=== PATIENT | female | born 2000 | race Caucasian/White ===

== ENCOUNTER 2020-08-13 05:07 | Inpatient (IN) ==
--- NOTE | 2020-07-20 12:52 | Anesthesiology Consultation ---
Date of Service July 20, 2020 Assessment & Plan (1) Encounter for pre-operative examination: COVID screening: Per assessment on 07/20: Travel screen negative, no known COVID- 19 positive contacts or current COVID-19 related symptoms. Surgeon arranging preop COVID testing. Awaiting results. 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 History Surgery Operation Date: 08/13/20 07:30 Proposed Procedures p Section in LD - Norma Garcia MD, FACOG Height/Weight Height: 5 ft 4 in Weight: 93.894 kg Allergies Allergy/AdvReac Type Severity Reaction Status Date / Time No Known Allergies Allergy Verified 07/20/20 12:19 Medications Home Medications Medication Instructions Recorded Confirmed Last Taken 1 tab PO DAILY 07/20/20 07/20/20 Unknown Past Medical History Medical History Anxiety Asthma no inh Juvenile arthritis Past Family History Family History Other No family history of adverse response to anesthesia Denies family history of Deep vein thrombosis Past Surgical History Surgical History History of surgery removal of ingrown toenail History of tonsillectomy and adenoidectomy History of tooth extraction Social History Smoking Status: Never smoker Do You Dip or Chew Tobacco: No Hx Alcohol Use: No Hx Substance Use: No substance use type: does not use Lab Results Anesthesia Preop Results Results Anesthesia Widget: Hgb 11.8 g/dL (12.0-16.0) L 05/26/20 Hct 34.1 % (37-47) L 05/26/20 Urine Color Yellow 05/26/20 Urine Appearance Clear (Clear) 05/26/20 Urine pH 7.5 (4.5-7.5) 05/26/20 Urine Specific Spencer 1.016 (1.000-1.030) 05/26/20 Urine Protein Negative (Negative) 05/26/20 Urine Glucose (UA) Negative (Negative) 05/26/20 Urine Ketones Negative (Negative) 05/26/20 Urine Blood Negative (Negative) 05/26/20 Urine Nitrite Negative (Negative) 05/26/20 Urine Bilirubin Negative (Negative) 05/26/20 Urine Urobilinogen Negative (Negative) 05/26/20 Urine Leukocyte Esterase 2+ (Negative) H 05/26/20 Urine WBC (Auto) 5-10 /hpf (0-5) H 05/26/20 Urine RBC (Auto) 0-4 /hpf (0-4) 05/26/20 Urine Hyaline Casts (Auto) 1-5 /lpf (0-5) 05/26/20 Urine Epithelial Cells (Auto) >30 /lpf (0-5) H 05/26/20 Urine Bacteria (Auto) 1+ (Negative) H 05/26/20
--- NOTE | 2020-08-12 13:29 | History & Physical Report ---
Date of Service August 12, 2020 Assessment & Plan Admission and Anticipated Discharge Date Admission Date: IUP at 39 weeks presents for elective primary LTCS because of overwhelming anxiety related to the normal labor & birthing process. The procedure and it's risks were reviewed in detail and all questions were answered to her satisfaction. History of Present Illness Primary Care Provider: Joanie Patino Patient is a 20 yo white female EDC 08/16/20 who presents at 39 weeks for elective LTCS because of overwhelming anxiety relating to labor & delivery. Despite counselling about pain relief during labor & delivery, and the risks with doing a LTCS she feels she can tolerate post-op pain and a C/S procedure much better than the pain of labor and delivery and the uncertainty that she will tolerate labor if pain management is inadequate. has otherwise been uncomplicated. GBS negative. Allergies Allergy/AdvReac Type Severity Reaction Status Date / Time No Known Allergies Allergy Verified 08/12/20 09:34 Home Medications Medication Instructions Recorded Confirmed Type 1 tab PO DAILY 07/20/20 08/12/20 History Patient History Medical History Anxiety Asthma no inh Juvenile arthritis Surgical History History of surgery removal of ingrown toenail History of tonsillectomy and adenoidectomy History of tooth extraction Family History Other No family history of adverse response to anesthesia Denies family history of Deep vein thrombosis Social History Smoking Status: Never smoker Second Hand Exposure: No; Hx Alcohol Use: No Hx Substance Use: No Preferred Language: Nepali Communication Ability: Effective Costume Specialist Required: No Beliefs That Will Affect Care: None marital status: Single marital status details: FOB: Aditya (23) [phone] Current Living Situation: Significant Other Current Living Situation Comment: lives with FOB , 2 dogs, 3 cats, mom changes litter current occupational status: employed current occupation: [employer]. Feels Safe at Home: Yes Assistive Devices: Contacts and Glasses Review of Systems All systems reviewed & are unremarkable except as noted in HPI & below Physical Exam Constitutional: WD/WN, vitals as above Respiratory: normal respiratory effort, lungs clear to auscultation Cardiovascular: RRR, no murmur, no edema Psychiatric: A+Ox3, euthymic affect Genitourinary: OB Exam Abdomen: + fundal height (38cm), + heart tones (135), + vertex and + estimated weight (6-7 pounds) Coding Level of Care Code None
[2020-08-13] MEDS ORDERED: LACTATED RINGER'S 1,000 ML IV SCH (06:00)
[2020-08-13] MEDS ORDERED: CITRIC ACID/SODIUM CITRATE 15 ML UDC PO SCH (06:00)
[2020-08-13] MEDS ORDERED: ceFAZolin 2,000 MG in SYRINGE 0 ML IV SCH (06:00)
[2020-08-13 06:04] LABS: Basophils # (auto) 0.02 K/uL (0-0.2); Basophils % (auto) 0.2 %; Eosinophils # (auto) 0.15 K/uL (0-0.5); Eosinophils % (auto) 1.5 %; Hematocrit (blood only) 32.2 % (37-47); Hemoglobin 10.7 g/dL (12.0-16.0); Immature Granulocytes # (auto) 0.04 K/uL (0.00-0.02); Immature Granulocytes % (auto) 0.4 %; Lymphocytes # (auto) 3.48 K/uL (1.2-3.4); Lymphocytes % (auto) 34.8 %; Mean Corpuscular Hemoglobin 29.3 pg (25-34); Mean Corpuscular Hgb Conc 33.2 g/dL (32-36); Mean Corpuscular Volume 88.2 fL (80-100); Mean Platelet Volume 11.7 fL (7.4-10.4); Monocytes # (auto) 0.76 K/uL (0.11-0.59); Monocytes % (auto) 7.6 %; Neutrophils # (auto) 5.56 K/uL (1.4-6.5); Neutrophils % (auto) 55.5 %; Platelet Count 164 K/uL (130-400); RDW Coefficient of Variation 13.5 % (11.5-14.5); RDW Standard Deviation 43.4 fL (36.4-46.3); Red Blood Count 3.65 M/uL (4.2-5.4); White Blood Count 10.01 K/uL (4.8-10.8)
[2020-08-13] MEDS ORDERED: PHENYLEPHRINE 100MCG/ML 5ML SYR ONE (06:22)
[2020-08-13] MEDS ORDERED: ONDANSETRON INJ 2 MG/ML 2 ML VIAL ONE (06:22)
[2020-08-13] MEDS ORDERED: OXYTOCIN 10 UNITS/ML VIAL ONE (06:22)
[2020-08-13] MEDS ORDERED: fentaNYL citrate 100 MCG/2 ML VIAL ONE (06:22)
[2020-08-13] MEDS ORDERED: MoRPHine SULFATE PF 1 MG/ML 10 ML AMP/VIAL ONE (06:22)
--- NOTE | 2020-08-13 06:32 | Anesthesiology Consultation ---
Date of Service August 13, 2020 Assessment & Plan (1) Encounter for pre-operative examination: Chart Review Chart Review: Acceptable Risk for Surgery and Patient NOT seen in Pre Admission Testing Consults Requested none History Surgery Operation Date: 08/13/20 07:30 Proposed Procedures p Section in LD - Norma Garcia MD, FACOG Height/Weight Height: 5 ft 4 in Weight: 96.162 kg Allergies Allergy/AdvReac Type Severity Reaction Status Date / Time Fish Containing Products Allergy Sneezing Verified 08/13/20 07:18 pollen extracts Allergy Rash Verified 08/13/20 07:18 Medications Home Medications Medication Instructions Recorded Confirmed Last Taken 1 tab PO DAILY 07/20/20 08/13/20 08/12/20 Active Medications Generic Name Dose Route Start Last Admin Trade Name Freq PRN Reason Stop Dose Admin Cefazolin Sodium 2,000 mg/ 15 mls @ 3.75 mls/min 08/13/20 06:00 08/13/20 07 :35 Syringe IV 08/13/20 14:00 3.75 mls/min PREOP NADIA Administration Past Medical History Medical History Anxiety no meds Asthma no inh Juvenile arthritis Exercise / Class Metabolic Activity II 4-5 Yardwork/Stairs/Walk up hill Past Family History Family History Other No family history of adverse response to anesthesia Denies family history of Deep vein thrombosis Past Surgical History Surgical History History of surgery removal of ingrown toenail History of tonsillectomy and adenoidectomy History of tooth extraction Past Anesthesia History No Hx of Anesthesia Complications and No Family Hx of Anesthesia Complications History of PONV No Hx of PONV and No Hx of Motion Sickness Social History Smoking Status: Never smoker Do You Dip or Chew Tobacco: No Hx Alcohol Use: No Hx Substance Use: No substance use type: does not use Physical Exam Vital Signs Last Vital Signs Temp 36.6 C 08/13/20 05:29 Pulse 85 08/13/20 05:26 Resp 20 08/13/20 05:29 BP 124/70 08/13/20 05:26 Testing Laboratory Results 08/13/20 05:51 Blood Type O Positive 08/13/20 05:51 Antibody Screen NEGATIVE 08/13/20 05:51
--- NOTE | 2020-08-13 07:34 | History & Physical Bridge Note ---
Date of Service August 13, 2020 History & Physical Bridge Note I have examined the patient, reviewed the History & Physical and in the interval since the performance of the History & Physical I have noted the following changes of clinical significance: no changes noted
[2020-08-13] MEDS ORDERED: MIDAZOLAM HCL 1 MG/ML 2ML VIAL ONE (08:18)
[2020-08-13] MEDS ORDERED: NALOXONE HCL 1 MG in SODIUM CHLORIDE 0.9% 1000ML 1,000 ML IV PRN (08:28)
[2020-08-13] MEDS ORDERED: NALOXONE HCL 0.4 MG/1 ML VIAL/CARP IV PRN (08:28)
[2020-08-13] MEDS ORDERED: ePHEDrine sulfate 50 MG/ML AMP IV PRN (08:28)
[2020-08-13] MEDS ORDERED: MoRPHine SULFATE PF 1 MG/ML 10 ML AMP/VIAL INT SPINAL ONE (08:28)
[2020-08-13] MEDS ORDERED: PROMETHAZINE HCL 12.5 MG in SODIUM CHLORIDE 0.9% 50 ML IV PRN (08:28)
[2020-08-13] MEDS ORDERED: LACTATED RINGER'S 500 ML IV PRN (08:28)
[2020-08-13] MEDS ORDERED: NALOXONE HCL 0.08 MG in SYRINGE 1.8 ML IV PRN (08:28)
[2020-08-13] MEDS ORDERED: MoRPHine SULFATE 2 MG/ML CARP IV PRN (08:28)
[2020-08-13] MEDS ORDERED: diphenhydrAMINE 50 MG/ML VIAL IV PRN (08:28)
[2020-08-13] MEDS ORDERED: ONDANSETRON INJ 2 MG/ML 2 ML VIAL IV PRN (08:28)
[2020-08-13] MEDS ORDERED: HYDROmorphone INJ 0.5 MG/0.5 ML SYR IV PRN (08:28)
[2020-08-13] MEDS ORDERED: SODIUM CHLORIDE 0.9% 1000ML 1,000 ML IV SCH (08:30)
[2020-08-13] MEDS ORDERED: DC INTRASPINAL MORPHINE SCH (08:30)
[2020-08-13] MEDS ORDERED: NO NARCOTICS OR SEDATIVES SCH ×2 (08:30)
--- NOTE | 2020-08-13 09:15 | Post Operative Brief Note ---
PG Immediate Post Op with CF Date of Surgery August 13, 2020 Pre & Post Diagnosis Operation Date: 08/13/20 07:30 <No data on this case meets the specified criteria> I identified the patient and participated in the time-out.: Yes Procedure Operation Date: 08/13/20 07:30 Actual Procedures p Section in LD LIVE MALE CHILD AT 0834 IN OR 3 - Norma Stokes MD, FACOG Surgeon Norma Garcia MD, FACOG Motor Rebuilder Joe Vega MD Estimated Blood Loss 800 Findings Consistent with Post-Op Diagnosis Specimens Specimen Description: 1. Placenta, HOLD 2. Cord Blood Drains [place] Catheter
--- NOTE | 2020-08-13 09:29 | Anesthesiology Progress Note ---
Date of Service August 13, 2020 Anesthesia Post Procedure Vital Signs Vital Signs: Temp Pulse Resp BP Pulse Ox 08/13/20 09:23 99 H 141/59 H 100 08/13/20 05:29 36.6 C 20 08/13/20 05:26 36.6 C 85 20 124/70 Transfer of Care Handoff Completed per policy Notes Mental Status: alert / awake / arousable and participated in evaluation Patient Amnestic to Procedure: Yes Nausea / Vomiting: adequately controlled Pain: adequately controlled Airway Patency, RR, SpO2: stable & adequate BP & HR: stable & adequate Hydration State: stable & adequate Neuraxial Anesthesia: was administered and sensory block is resolving Anesthetic Complications: no major complications apparent and Pt Satisfied with anesthetic care
[2020-08-13] MEDS ORDERED: DIPHTHERIA/TETANUS/PERTUSSIS 0.5 ML SYR/VIAL IM ONE (09:50)
[2020-08-13] MEDS ORDERED: SUPERCREAM 0.870% 15 GM JAR EXT PRN (09:50)
[2020-08-13] MEDS ORDERED: SENNA 8.6 MG TAB PO PRN (09:50)
[2020-08-13] MEDS ORDERED: MAGNESIUM HYDROXIDE SUSP 30 ML UDC PO PRN (09:50)
[2020-08-13] MEDS ORDERED: BENZOCAINE 20% AER SPR 82.5 GM CAN EXT PRN (09:50)
[2020-08-13] MEDS ORDERED: HYDROCORTISONE ACETATE 25 MG SUPP PR PRN (09:50)
--- NOTE | 2020-08-13 10:43 | Operative Report ---
PG Post Operative Report Pre & Post Diagnosis Operation Date: 08/13/20 07:30 Pre-Op Diagnosis: Elective c/s due to intractable anxiety. Post-Op Diagnosis: Elective c/s due to intractable anxiety. Delivery of viable male infant 6 lbs 9 ozs I identified the patient and participated in the time-out.: Yes Procedure Operation Date: 08/13/20 07:30 Actual Procedures p Section in LD LIVE MALE CHILD AT 0834 IN OR 3 - Norma Stokes MD, FACOG Surgeon Norma Garcia MD, FACOG Pulmonologist Intensivist Joe Vega MD Estimated Blood Loss 800 Findings Consistent with Post-Op Diagnosis uterus is gravid and consistent with a term . Bilateral ovaries and tubes were grossly normal. Specimens Placenta Drains leiva to straight drainage- clear urine at end of procedure Anesthesia Type Spinal Complications none Disposition Accompanied Patient To Recovery: Yes Disposition: L&D Indications The patient is a 20-year-old G1, P0 white female who presents at 39 weeks for primary elective section because of severe anxiety. She has generalized anxiety however she is most anxious about the labor and delivery process. After extensive counseling patient is still requesting a primary section because she feels she will not be able to tolerate the labor and vaginal delivery process. She understands the risk procedure and is willing to proceed. Description of Procedure After the patient received adequate spinal anesthetic she was prepped and draped in the usual sterile fashion. A low transverse skin incision was made with a scalpel and carried to the fascia with the same scalpel. The fascial incision was then extended transversely with Zimmer scissors and the edges grasped with Apurva clamps. The underlying rectus muscles were then bluntly sharply dissected off of the overlying fascia. The rectus muscles were divided along the midline and the underlying peritoneum elevated and entered sharply with the Metzenbaum scissors. The the bladder was then taken down off the anterior surface of the uterus with Metzenbaum scissors and placed behind the bladder blade. The lower uterine segment then entered with a scalpel and extended transversely. The infant was delivered from the vertex presentation with the assistance of moderate fundal pressure and vacuum as the infant kept trying to revert to a transverse lie position. After the head was delivered the rest of the infant delivered easily there was a loose nuchal cord which was reduced at the time of delivering the head. There was spontaneous crying and the was moving all 4 limbs. The infant was handed off to Dr. Coreas who was in attendance as educational consultant. The placenta was then manually removed and the uterus was exteriorized and covered with a clean lap sponge. The uterine cavities was then explored and found be free of any retained tissue or membranes. The uterine incision was then closed in 2 layers in a running locking imbricating fashion with 0 Monocryl. Hemostasis was noted to be excellent. The posterior cul-de-sac was irrigated with a small amount of normal saline solution. Several clots were removed from the anterior cul-de-sac. The cul-de-sac was also irrigated with normal saline. The uterus was then placed back into the abdominal cavity. Hemostasis continued to be excellent. After the gutters were explored and found to be free of any clot or fluid, the rectus muscles were closed on the midline with individual stitches of 0 Monocryl. The fascia was then closed in a running fashion with 0 Vicryl. After the adipose layer was irrigated with normal saline the skin edges were reapproximated using a subcuticular stitch of 4-0 Vicryl. The urine was clear at the end of the case, and the patient and tolerated the procedure well and were stable on upon arrival in labor and delivery. I attest to the content of the Intraoperative Record and any orders documented therein. Any exceptions are noted below.
[2020-08-13] MEDS: OXYTOCIN 20 UNITS in LACTATED RINGER'S 1,000 ML IV SCH ×2 (11:33→19:37)
[2020-08-13] MEDS: KETOROLAC 30 MG/ML VIAL IV PRN (16:05)
[2020-08-13] MEDS: SIMETHICONE 80 MG CHEW PO SCH ×3 (17:46→21:11)
[2020-08-13] MEDS: DOCUSATE SODIUM 100 MG CAP PO SCH (21:11)
[2020-08-14] MEDS ORDERED: LACTATED RINGER'S 1,000 ML IV SCH (01:16)
[2020-08-14] MEDS: KETOROLAC 30 MG/ML VIAL IV PRN (02:29)
[2020-08-14] MEDS ORDERED: PROMETHAZINE HCL 25 MG in SODIUM CHLORIDE 0.9% 50 ML IV PRN (02:30)
[2020-08-14] MEDS ORDERED: diphenhydrAMINE 50 MG/ML VIAL IV PRN (02:30)
[2020-08-14] MEDS ORDERED: ONDANSETRON INJ 2 MG/ML 2 ML VIAL IV PRN (02:30)
[2020-08-14] MEDS ORDERED: KETOROLAC 30 MG/ML VIAL IV PRN (02:30)
[2020-08-14] MEDS ORDERED: diphenhydrAMINE Capsule 25 MG CAP PO PRN (02:30)
[2020-08-14] MEDS ORDERED: MEPERIDINE HCL 50 MG/ML CARP IV PRN (02:30)
[2020-08-14 06:21] LABS: Hematocrit (blood only) 23.6 % (37-47)
--- NOTE | 2020-08-14 06:49 | Obstetrical Progress Note ---
Date of Service <Joe Vega MD - Last Filed: 08/14/20 07:56> August 14, 2020 Assessment & Plan <Joe Vega MD - Last Filed: 08/14/20 07:56> (1) state: 20 y/o 39w4d s/p elective pLTCS on 08/13, POD1. O pos. RI. - meeting POD1 milestones - ambulate. - Hb 10.7->8.0, asymptomatic and has ambulated w/o issues. BP 90/57 noted. will monitor clinically. CBC ordered for 08/15. defer starting iron at this time. will likely start iron supp x 6 weeks after dispo - continue - advance diet - continue routine care Subjective <Joe Vega MD - Last Filed: 08/14/20 07:56> Ambulation: ambulating normally Voiding: no voiding problems Passing Gas:: Yes Diet Tolerance:: clear liquids Lochia:: Small Feeding Type:: bottle feeding Current Pain Level(1-10): 6 Pain is tolerable, attributes severity to just waking up. Patient does not have any concerns and is doing well. Review of Systems Denies fever, chills, sweats Denies shortness of breath, chest pain, palpitations. Denies breast pain. Denies dysuria. Denies headache or changes in vision. Denies nausea/vomiting. Denies numbness, tingling, weakness. Denies calf pain. Denies mood complaints. Physical Exam <Joe Vega MD - Last Filed: 08/14/20 07:56> General: Alert, oriented. No acute distress. Cardiac: Regular rate and rhythm, no murmurs/rubs/gallops. Respiratory: Clear to auscultation bilaterally, no wheezes/rales/rhonchi. No respiratory distress. Abdomen: , soft. Uterus: Uterine fundus firm, palpable at lvl of umbilicus per attending exam. LTCS incision intact and nonerythematous per attending exam. Lower Extremities: No lower extremity edema or swelling. No deep calf pain. Ho man's negative bilaterally. Results & Data ([facility]) <Joe Vega MD - Last Filed: 08/14/20 07:56> Vital Signs (Past 12 Hours) Vital Signs Temp Pulse Resp BP Pulse Ox 08/14/20 03:15 37.0 C 86 16 90/57 L 08/14/20 02:25 16 96 08/14/20 01:50 18 97 08/14/20 00:50 18 97 08/13/20 23:30 37.1 C 80 16 98/82 L 99 08/13/20 22:20 16 100 08/13/20 21:10 16 99 08/13/20 20:20 16 98 08/13/20 19:45 36.9 C 72 16 102/65 98 08/13/20 19:20 16 96 Medications Administered <Norma Garcia MD, FACOG - Last Filed: 08/14/20 08:09> Co-Signing Physician Notes Resident Physician Supervision Note: I was present with Dr.Lawrence Vega during the history and exam. I discussed the c ase with the resident and agree with the findings and plan as documented in the note. Any exceptions or clarifications are listed here: [None] Documented By: Norma Garcia MD, FACOG
[2020-08-14] MEDS: SIMETHICONE 80 MG CHEW PO SCH ×4 (08:41→20:24)
[2020-08-14] MEDS: oxyCODONE/ACETAMINOPHEN 5mg/325mg TAB PO PRN ×2 (08:41→15:20)
[2020-08-14] MEDS: IBUPROFEN 600 MG TAB PO PRN ×3 (08:42→20:23)
[2020-08-14] MEDS: DOCUSATE SODIUM 100 MG CAP PO SCH ×2 (08:42→20:24)
[2020-08-14] MEDS: PRENATAL VITAMIN 1 TAB PO SCH (08:42)
[2020-08-14] MEDS ORDERED: bisacodyL 5 MG TABEC PO SCH (20:00)
[2020-08-15] MEDS: IBUPROFEN 600 MG TAB PO PRN (03:28)
[2020-08-15] MEDS: oxyCODONE/ACETAMINOPHEN 5mg/325mg TAB PO PRN (03:29)
[2020-08-15 06:09] LABS: Basophils # (auto) 0.02 K/uL (0-0.2); Basophils % (auto) 0.3 %; Eosinophils # (auto) 0.11 K/uL (0-0.5); Eosinophils % (auto) 1.5 %; Hematocrit (blood only) 23.8 % (37-47); Hemoglobin 7.7 g/dL (12.0-16.0); Immature Granulocytes # (auto) 0.03 K/uL (0.00-0.02); Immature Granulocytes % (auto) 0.4 %; Lymphocytes # (auto) 1.58 K/uL (1.2-3.4); Mean Corpuscular Hemoglobin 29.6 pg (25-34); Mean Corpuscular Hgb Conc 32.4 g/dL (32-36); Mean Corpuscular Volume 91.5 fL (80-100); Mean Platelet Volume 11.5 fL (7.4-10.4); Monocytes # (auto) 0.62 K/uL (0.11-0.59); Monocytes % (auto) 8.2 %; Neutrophils # (auto) 5.17 K/uL (1.4-6.5); Neutrophils % (auto) 68.6 %; Platelet Count 161 K/uL (130-400); RDW Coefficient of Variation 13.8 % (11.5-14.5); RDW Standard Deviation 46.2 fL (36.4-46.3); White Blood Count 7.53 K/uL (4.8-10.8)
[2020-08-15 06:32] LABS: Polychromasia 1+
[2020-08-15] MEDS: DOCUSATE SODIUM 100 MG CAP PO SCH (08:33)
[2020-08-15] MEDS: PRENATAL VITAMIN 1 TAB PO SCH (08:33)
[2020-08-15] MEDS: SIMETHICONE 80 MG CHEW PO SCH (08:33)
--- NOTE | 2020-08-15 08:57 | Obstetrical Progress Note ---
Date of Service August 15, 2020 Assessment & Plan (1) state: POD#2 doing well. DC home. Instructions reviewed. Followup 6w PP. Subjective Ambulation: ambulating normally Voiding: no voiding problems Passing Gas:: Yes Diet Tolerance:: regular diet Lochia:: Moderate Feeding Type:: breast feeding Review of Systems All systems reviewed & are unremarkable except as noted in HPI & below Physical Exam Incision CDI Constitutional WD/WN, vitals as above no acute distress Respiratory normal respiratory effort Cardiovascular Rate/Rhythm: regular rate and regular rhythm Gastrointestinal (Abdomen) Inspection/Auscultation: abdomen normal to inspection; abdomen not distended Percussion/Palpation: abdomen soft Genitourinary OB Exam Abdomen: + fundal height Fundus: + firm; not tender Results & Data ([facility]) Vital Signs (Past 12 Hours) Vital Signs Temp Pulse Resp BP Pulse Ox 08/14/20 23:45 36.7 C 87 18 117/84 99
[2020-08-15] MEDS ORDERED: bisacodyL 10 MG SUPP PR PRN (09:09)
--- NOTE | 2020-08-20 22:16 | Discharge Summary (DS) ---
PRINCIPAL DIAGNOSES: Intrauterine at 39 weeks, intractable anxiety. PRINCIPAL PROCEDURE: An elective section because of the intractable anxiety with delivery of a viable male , 6 pounds 9 ounces. HISTORY: The patient is a 20-year-old G1, P0 white female who presents at 39 weeks for primary section because of severe anxiety. Her anxiety is also focused on the labor and delivery process. After extensive counseling, the patient is still requesting repeat section. This was done without difficulty. She had an uncomplicated postop course. She was eating regular diet on her 1st postop day, ambulating well, and oral pain meds controlled her pain on her 1st postop day. Hemoglobin on admission was 10.7, hematocrit 32.2. First postop day hemoglobin 8.0, hematocrit 23.6. Second postop day hemoglobin 7.7, hematocrit of 23.8. She was sent home in good condition with prescriptions for Percocet 1 tablet p.o. q. 6 hours p.r.n. pain, Motrin 600 mg p.o. q. 6 hours p.r.n. pain, iron to be taken 1 daily for the next 6 weeks, as well as her vitamin. She is to call for temperature of 101 degrees or higher, heavy vaginal bleeding, burning with urination, increased redness, drainage or pain in her incision, calf tenderness, or any other concerns. She is to be seen in the office in 6 weeks.
== END 2020-08-15 10:55 | disposition home or self-care (01) | DRG 788 ==
LOC: 4S1 05:07 → EDSTATUS 07:30 → 4S2 14:36

== ENCOUNTER 2023-02-15 05:27 | Inpatient (IN) ==
--- NOTE | 2023-02-01 14:30 | Anesthesiology Consultation ---
Date of Service February 01, 2023 Assessment & Plan (1) Encounter for pre-operative examination: Chart Review Chart Review: entry level drafter initiated -Infectious Disease screening: Per PAT nursing assessment on 02/01/23. No known infectious disease contacts in past 10 days or current infectious disease symptoms. No recent travel outside the country. Primary 08/13/20 (elective due to anxiety) = Done under SAB at L3-4 with 1 attempt. Patient maintained duckwater airway History Surgery Operation Date: 02/15/23 07:30 Proposed Procedures p Section (Delivery of Baby Through Abdominal Incision) - Geeta Goldstein MD, FACOG s With Bilateral Tubal Ligation - Geeta Goldstein MD, FACOG Height/Weight Height: 5 ft 4 in Weight: 91.172 kg Allergies Allergy/AdvReac Type Severity Reaction Status Date / Time Fish Containing Products Allergy Sneezing Verified 02/01/23 13:47 pollen extracts Allergy Rash Verified 02/01/23 13:47 Medications Home Medications Medication Instructions Recorded Confirmed Last Taken ondansetron HCl 4 mg tablet 4 mg PO Q6H PRN nausea and 08/17/22 02/01/23 Unknown vomiting #20 tabs Past Medical History Medical History (Updated 02/01/23 @ 14:33 by Angelica Jacobo PA-C) Complete 02/2021 Juvenile arthritis Anxiety no meds Asthma no inhaler Past Family History Family History Other No family history of adverse response to anesthesia Denies family history of Ovarian cancer Deep vein thrombosis Breast cancer Colorectal cancer Past Surgical History Surgical History History of x1 History of surgery removal of ingrown toenail History of tooth extraction History of tonsillectomy and adenoidectomy Social History Smoking Status: Never smoker Do You Dip or Chew Tobacco: No Hx Alcohol Use: No Hx Substance Use: No substance use type: does not use Testing Laboratory Results 11/27/22= HGB: 9.7 HCT: 30.1
--- NOTE | 2023-02-14 13:55 | History & Physical Report ---
Date of Service February 14, 2023 Assessment & Plan (1) Encounter for pre-operative examination: Plan: section and bilateral tubal ligation. The patient was counseled to the nature of the procedure including alternatives such as labor. Risks were discussed including bleeding infection injury to bowel bladder ureter vessels and even baby. Deep Vein thrombosis, pulmonary embolus and breakdown of the incision discussed. Failure of the tubal and regret were also reviewed Deep vein thrombosis pulmonary embolus hernia and failure of the incision to heal were discussed. Failure of the tubal and possible regret were discussed, especially at age 23. Patient verbalized understanding of this and was given ample time to ask questions History of Present Illness Primary Care Provider: NO PCP GALE Calculator Estimated Delivery Date Method Current WG Current Estimate 02/17/23 Ultrasound #1 39w 4d Other Estimates 02/06/23 LMP (Certain) 41w 1d LMP: 05/02/22 : 3 Full term: 1 Premature: 0 Total Number of Induced Abortions: 0 Total Number of Spontaneous Abortions: 1 Ectopics: 0 Multiple births: 0 Number of Living Children: 1 and Delivery Plans Previous c section - LTCS on Op report - Plan for 39 week repeat C/S WITH TUBAL SCHEDULED FOR 02/15/[address] SHREYAS URRUTIA-31 FORM SIGNED 11/27/2022 Obesity (BMI between 35-39 @ beginning of ) *Growth US @ 32 wks *Weekly NSTs @ 36wks Allergies Allergy/AdvReac Type Severity Reaction Status Date / Time Fish Containing Products Allergy Sneezing Verified 02/14/23 13:11 pollen extracts Allergy Rash Verified 02/14/23 13:11 Home Medications Medication Instructions Recorded Confirmed Type ondansetron HCl 4 mg tablet 4 mg PO Q6H PRN nausea and 08/17/22 02/14/23 Rx vomiting #20 tabs Patient History Medical History (Updated 02/01/23 @ 14:33 by Angelica Jacobo PA-C) Complete 02/2021 Juvenile arthritis Anxiety no meds Asthma no inhaler Surgical History History of x1 History of surgery removal of ingrown toenail History of tooth extraction History of tonsillectomy and adenoidectomy Family History Other No family history of adverse response to anesthesia Denies family history of Ovarian cancer Deep vein thrombosis Breast cancer Colorectal cancer Social History (Updated 07/07/22 @ 13:24 by Ivelisse Mcnamara, RN) Smoking Status: Never smoker Second Hand Exposure: No; Do You Dip or Chew Tobacco: No; Hx Alcohol Use: No Hx Substance Use: No Preferred Language: Gabonese Communication Ability: Effective Copier Technician Required: No Beliefs That Will Affect Care: None marital status: Single marital status details: Griselda confer -mother [phone] Current Living Situation: Family Current Living Situation Comment: lives with FOB, son, dogs, 2 cat-fob changing litter current occupational status: employed 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
[~2023-02-15 05:27] MED LIST: LACTATED RINGER'S 1,000 ML IV PRN; LIDOCAINE 1% LOCAL 20 ML VIAL INFIL PRN; OXYTOCIN 30 UNITS/NSS 30 UNITS/500 ML BAG IV PRN
[2023-02-15] MEDS ORDERED: ceFAZolin 2000MG 2,000 MG/15 ML SYR IV SCH (05:41)
[2023-02-15] MEDS ORDERED: CITRIC ACID/SODIUM CITRATE 15 ML UDC PO ONE (05:43)
[2023-02-15 06:03] LABS: Hematocrit (blood only) 29.4 % (37.0-47.0); Mean Corpuscular Hemoglobin 24.3 pg (25.0-34.0); Mean Corpuscular Hgb Conc 30.6 g/dL (32.0-36.0); Mean Corpuscular Volume 79.2 fL (80.0-100.0); Mean Platelet Volume 12.1 fL (9.4-12.4); Platelet Count 174 K/uL (130-400); RDW Coefficient of Variation 15.3 % (11.5-14.5); RDW Standard Deviation 43.9 fL (36.4-46.3); Red Blood Count 3.71 M/uL (4.20-5.40)
[2023-02-15] MEDS ORDERED: SODIUM CHLORIDE 0.9% 250 ML IV PRN (06:32)
--- NOTE | 2023-02-15 06:44 | History & Physical Bridge Note ---
Date of Service February 15, 2023 History & Physical Bridge Note I have examined the patient, reviewed the History & Physical and in the interval since the performance of the History & Physical I have noted the following changes of clinical significance: no changes noted
[2023-02-15] MEDS ORDERED: OXYTOCIN 10 UNITS/ML VIAL ONE (07:02)
[2023-02-15] MEDS ORDERED: PHENYLEPHRINE 100MCG/ML 10ML SYR IV ONE (07:02)
[2023-02-15] MEDS ORDERED: MoRPHine SULFATE PF 1 MG/ML 10 ML AMP/VIAL ONE (07:02)
[2023-02-15] MEDS ORDERED: fentaNYL citrate PF 100 MCG/2 ML VIAL ONE (07:02)
[2023-02-15] MEDS ORDERED: ONDANSETRON INJ 2 MG/ML 2 ML VIAL IV PRN ×2 (07:50→10:54)
[2023-02-15] MEDS ORDERED: NALOXONE HCL 0.4 MG/1 ML VIAL/CARP IV PRN (07:50)
[2023-02-15] MEDS ORDERED: NALOXONE HCL 0.08 MG in SYRINGE 1.8 ML IV PRN (07:50)
[2023-02-15] MEDS ORDERED: HYDROmorphone INJ 0.5 MG/0.5 ML SYR IV PRN (07:50)
[2023-02-15] MEDS ORDERED: LACTATED RINGER'S 500 ML IV PRN (07:50)
[2023-02-15] MEDS ORDERED: NALBUPHINE HCL 5 MG in SYRINGE 0 ML IV PRN (07:50)
[2023-02-15] MEDS ORDERED: NALOXONE HCL 1 MG in SODIUM CHLORIDE 0.9% 1,000 ML IV PRN (07:50)
[2023-02-15] MEDS ORDERED: PROMETHAZINE HCL 6.25 MG in SODIUM CHLORIDE 0.9% 50 ML IV PRN (07:50)
[2023-02-15] MEDS ORDERED: diphenhydrAMINE 50 MG/ML VIAL IV PRN (07:50)
[2023-02-15] MEDS ORDERED: ePHEDrine sulfate 50 MG/ML AMP IV PRN (07:50)
[2023-02-15] MEDS ORDERED: MoRPHine SULFATE PF 1 MG/ML 10 ML AMP/VIAL INT SPINAL ONE (07:50)
[2023-02-15] MEDS ORDERED: SODIUM CHLORIDE 0.9% 1,000 ML IV SCH (08:00)
[2023-02-15] MEDS ORDERED: DC INTRASPINAL MORPHINE SCH (08:00)
[2023-02-15] MEDS ORDERED: NO NARCOTICS OR SEDATIVES SCH (08:00)
[2023-02-15] MEDS ORDERED: ePHEDrine sulfate 50 MG/5 ML SYR ONE (08:13)
[2023-02-15 08:30] LABS: Base Excess Cord Arterial Bld -1.9 mEq/L (-9-1.8); CO2 Cord Arterial Blood 53 mmHg (39.1-73.5); HCO3 Cord Arterial Blood 26 mmol/L (19.7-28.5); Oxygen Sat Cord Arterial Blood < 60.0 % (<60); PO2 Cord Arterial Blood 20 mmHg (4.1-31.7); pH Cord Arterial Blood 7.29 (7.1-7.38)
[2023-02-15 08:32] LABS: Base Excess Cord Venous Blood -2.7 mEq/L (-7.7-1.9); Cord Venous Blood HCO3 23 mmol/L (18.4-26.8); Cord Venous Blood PCO2 40 mmHg (30.4-57.2); Cord Venous Blood PO2 33 mmHg (14.1-43.3); Cord Venous Blood pH 7.36 (7.20-7.44); O2 Saturation Cord Venous Bld 69.6 % (<68)
--- NOTE | 2023-02-15 08:33 | Operative Report ---
PG Post Operative Report Pre & Post Diagnosis Operation Date: 02/15/23 07:30 Pre-Op Diagnosis: 1. Previous C/section 2. Desires repeat 3. Bilateral Tubal Ligation Post-Op Diagnosis: Same I identified the patient and participated in the time-out.: Yes Procedure Operation Date: 02/15/23 07:30 Actual Procedures p Section with the of a live female child at 0754. - Geeta Goldstein MD, FACOG s with Bilateral Tubal Ligation - Geeta Goldstein MD, FACOG Surgeon Geeta Goldstein MD, FACOG Computer Methods Analyst Dr. Junior Estimated Blood Loss 500 Findings Consistent with Post-Op Diagnosis Specimens Bilateral fallopian tubes Cord gases cord blood Description of Procedure Regional anesthetic had been given by anesthesia patient was prepped and draped with a leftward tilt preoperative antibiotics had been given in appropriate timing by anesthesiology. Once the prep was allowed to fully dry timeout was performed. Pickups with teeth were used to test the incision area was found to be adequate for incision as the patient did not feel sharp pain. Scalpel was used to make a Pfannenstiel incision on the lower abdomen. We then cut through the subcutaneous fat down to the level of the anterior rectus sheath fascia this was cut in the midline and then extended laterally with the curved M bryan scissors. At this stage we then placed 2 Apurva clamps on the anterior aspect of the fascia. Using the curved Zimmer's we are able to dissect the fascia superiorly away from the rectus muscles. Care was taken to maintain hemostasis. Apurva clamps were then placed to the inferior aspect of the anterior sheath of the fascia. Fascia was then dissected away from the rectus muscles inferiorly towards the pubic bone. A Apurva was then placed in the midline both inferiorly and superiorly. This was to allow exposure by retraction rectus muscles were in the midline with were then able to cut through the peritoneum and then enter the peritoneal cavity. Opening was enlarged to allow exposure of the peritoneal cavity both superiorly and inferiorly. Once adequate space was obtained a bladder retractor was placed to expose the lower segment Metzenbaums were used to dissect the bladder flap inferiorly away from the uterus. This was done sharply bladder retractor was then repositioned to expose the lower segment of the uterus Fresh scalpel was used to make a low transverse incision on the uterus. Uterus was then entered bluntly with the operators finger, membranes ruptured and the opening was enlarged using the operators fingers bluntly pulling superiorly and inferiorly to allow exposure. Baby was delivered by first flexion of the head elevation of the head out of the pelvis and then pressure by the assistant maintenance manager on the maternal abdomen. Baby's head was then delivered mouth and then nares were suctioned and then using gentle traction the baby was fully delivered. Live vigorous . Fluid was clear cord clamped and cut cord gases obtained cord blood obtained baby handed to pediatrics. Placenta removed was removed with traction we ensure the entire placenta was removed with a moist lap sponge into the uterus Uterus was then exteriorized. IV Pitocin had been started by anesthesia tone improved there were no extensions the uterus was then closed using 0 Monocryl in a 2 layer closure the first layer closed in a running locked fashion from left to right and then a second closure from left to right in a running nonlocked fashion. At this stage hemostasis was excellent. Patient requested tubal this was confirmed the Kali was used to grasp the distal end of the fallopian tube on the patient's right side and then using the LigaSure we carefully coagulated and cut the attachments of the fallopian tube to the ovary and uterus taking care to coagulate and cut with each time the tube was then removed and we reached the uterine end of the fallopian tube the exact same process was repeated on the right side hemostasis was excellent it should be noted we looked at them after placement of the uterus back in the peritoneal cavity and hemostasis was excellent Uterus was placed back in the peritoneal cavity with suction irrigation out and inspection of the uterus at this stage revealed excellent hemostasis Retractors were removed urine color was clear at this stage of the case we inspected the rectus muscles they were hemostatic fascia was closed with 0 Vicryl subcutaneous fat was irrigated and closed with 3-0 Vicryl skin closed with 4-0 subcuticular Monocryl I attest to the content of the Intraoperative Record and any orders documented therein. Any exceptions are noted below. OB Procedure Charges [id number] Add on Tubal for C/S
--- NOTE | 2023-02-15 09:01 | Anesthesiology Progress Note ---
Date of Service February 15, 2023 Anesthesia Post Procedure Vital Signs Vital Signs: Temp Pulse Resp BP Pulse Ox 02/15/23 08:59 77 97 02/15/23 08:55 93 H 106/58 L 02/15/23 08:54 91 H 99 02/15/23 08:49 98 H 96 02/15/23 08:45 72 108/61 02/15/23 08:44 111 H 97 02/15/23 08:39 79 98 02/15/23 08:35 36.6 C 20 02/15/23 08:35 73 114/77 02/15/23 08:34 109 H 94 02/15/23 07:22 18 02/15/23 07:22 18 02/15/23 06:25 36.6 C 18 02/15/23 05:44 93 H 105/59 L 02/15/23 05:41 36.6 C 18 02/15/23 05:30 18 02/15/23 05:30 36.6 C 18 Transfer of Care Handoff Completed per policy Notes Mental Status: alert / awake / arousable and participated in evaluation Patient Amnestic to Procedure: No Nausea / Vomiting: adequately controlled Pain: adequately controlled Airway Patency, RR, SpO2: stable & adequate BP & HR: stable & adequate Hydration State: stable & adequate Neuraxial Anesthesia: was administered and sensory block is resolving Anesthetic Complications: no major complications apparent and Pt Satisfied with anesthetic care
[2023-02-15] MEDS: KETOROLAC 30 MG/ML VIAL IV PRN ×2 (09:53→15:32)
[2023-02-15] MEDS ORDERED: HYDROCORTISONE ACETATE 25 MG SUPP PR PRN (10:54)
[2023-02-15] MEDS ORDERED: SENNA 8.6 MG TAB PO PRN (10:54)
[2023-02-15] MEDS ORDERED: BENZOCAINE 20% SPRY 85 APPLN/85 GM CAN EXT PRN (10:54)
[2023-02-15] MEDS ORDERED: DIPHTHERIA/TETANUS/PERTUSSIS Vaccine (Tdap, Age 7+yrs) 0.5mL SYR/VL IM ONE (10:54)
[2023-02-15] MEDS ORDERED: MAGNESIUM HYDROXIDE SUSP 30 ML UDC PO PRN (10:54)
[2023-02-15] MEDS ORDERED: LACTATED RINGER'S 1,000 ML IV SCH (11:00)
[2023-02-15] MEDS: OXYTOCIN 20 UNITS/LR 1,002 ML IV SCH ×2 (12:45→21:06)
[2023-02-15] MEDS: SIMETHICONE 80 MG CHEW PO SCH ×3 (12:49→20:43)
[2023-02-15] MEDS: DOCUSATE SODIUM 100 MG CAP PO SCH (20:43)
[2023-02-15] MEDS ORDERED: LACTATED RINGER'S 1,000 ML IV ONE (21:03)
[2023-02-16] MEDS: KETOROLAC 30 MG/ML VIAL IV PRN (00:42)
[2023-02-16] MEDS ORDERED: KETOROLAC 30 MG/ML VIAL IV PRN (01:50)
[2023-02-16] MEDS ORDERED: diphenhydrAMINE Capsule 25 MG CAP PO PRN (01:51)
[2023-02-16] MEDS ORDERED: PROMETHAZINE HCL 25 MG in SODIUM CHLORIDE 0.9% 50 ML IV PRN (01:51)
[2023-02-16] MEDS ORDERED: diphenhydrAMINE 50 MG/ML VIAL IV PRN (01:51)
[2023-02-16] MEDS: oxyCODONE/ACETAMINOPHEN 5mg/325mg TAB PO PRN ×4 (03:53→20:32)
[2023-02-16] MEDS: IBUPROFEN 600 MG TAB PO PRN ×4 (03:54→20:32)
--- NOTE | 2023-02-16 04:56 | Obstetrical Progress Note ---
Date of Service <Greg Portillo DO - Last Filed: 02/16/23 06:25> February 16, 2023 Assessment & Plan <Greg Portillo DO - Last Filed: 02/16/23 06:25> (1) Status post delivery: (2) Status post tubal ligation at time of delivery, current hosp: Plan 23 year old female , POD#1 s/p c/s and bilateral tubal ligation: Eating well, voiding well, ambulating well Vitals reviewed, WNL Pain well controlled with Percocet and Motrin Routine post-op care - OOB, ambulation, diet progression as tolerated Will have 6 week follow up with Dr. Goldstein <Geeta Goldstein MD, FACOG - Last Filed: 02/16/23 07:21> (1) Status post delivery: (2) Status post tubal ligation at time of delivery, current hosp: Subjective <Greg Portillo - Last Filed: 02/16/23 06:25> Ambulation: ambulating normally Voiding: no voiding problems Passing Gas:: Yes Diet Tolerance:: regular diet Lochia:: Small Feeding Type:: bottle feeding Pain well controlled with Percocet and Motrin Review of Systems -Denies fever or chills -Denies dyspnea, chest pain, or palpitations -Denies dysuria -Denies headache or changes in vision Physical Exam <Greg Portillo DO - Last Filed: 02/16/23 06:25> General: Alert and oriented. No acute distress Cardiac: Regular rate and rhythm, no murmurs appreciated Respiratory: Lungs clear to auscultation bilaterally, No increased work of breathing Abdominal: Soft, non-tender, non-distended. Bowel sounds present. Uterus: Uterine fundus firm, palpable below umbilicus Extremities: No lower extremity edema, calves non-tender bilaterally Results & Data <Greg Portillo - Last Filed: 02/16/23 06:25> Vital Signs (Past 12 Hours) Vital Signs Temp Pulse Resp BP Pulse Ox O2 Del Method 02/16/23 02:15 18 96 02/16/23 01:30 16 97 02/16/23 00:30 16 96 02/15/23 23:15 16 96 02/15/23 23:15 36.5 C 66 16 105/70 96 Room Air 02/15/23 22:00 16 95 02/15/23 21:30 16 98 02/15/23 20:30 18 99 02/15/23 19:30 18 100 02/15/23 19:30 Room Air 02/15/23 19:30 36.4 C L 81 18 105/64 100 Room Air 02/15/23 18:30 18 100 02/15/23 17:30 18 100 Supervising Physician <Geeta Goldstein MD, FACOG - Last Filed: 02/16/23 07:21> Co-Signing Physician Notes Resident Physician Supervision Note: I was present with Dr. Portillo during the history and exam. I discussed the case with the resident and agree with the findings and plan as documented in the note. Any exceptions or clarifications are listed here: [None] Documented By: Geeta Goldstein MD, FACOG Resident Activity Tracking <Greg Portillo DO - Last Filed: 02/16/23 06:25> Resident Involvement: Resident Care Provided Care Provided: OB Delivery
[2023-02-16 06:41] LABS: Basophils # (auto) 0.03 K/uL (0.00-0.20); Basophils % (auto) 0.3 %; Eosinophils # (auto) 0.14 K/uL (0.00-0.50); Eosinophils % (auto) 1.5 %; Hemoglobin 8.8 g/dl (12.0-16.0); Immature Granulocytes # (auto) 0.04 K/uL (0.01-0.20); Immature Granulocytes % (auto) 0.4 %; Lymphocytes # (auto) 2.08 K/uL (1.20-3.40); Lymphocytes % (auto) 22.5 %; Mean Corpuscular Hemoglobin 24.4 pg (25.0-34.0); Mean Corpuscular Hgb Conc 31.4 g/dL (32.0-36.0); Mean Corpuscular Volume 77.6 fL (80.0-100.0); Mean Platelet Volume 11.8 fL (9.4-12.4); Monocytes # (auto) 0.54 K/uL (0.11-0.59); Monocytes % (auto) 5.8 %; Neutrophils # (auto) 6.41 K/uL (1.40-6.50); Neutrophils % (auto) 69.5 %; Platelet Count 163 K/uL (130-400); RDW Coefficient of Variation 15.2 % (11.5-14.5); RDW Standard Deviation 42.5 fL (36.4-46.3); Red Blood Count 3.61 M/uL (4.20-5.40); White Blood Count 9.24 K/ul (4.8-10.8)
[2023-02-16] MEDS: PRENATAL VITAMIN 1 TAB PO SCH (08:03)
[2023-02-16] MEDS: DOCUSATE SODIUM 100 MG CAP PO SCH ×2 (08:03→20:31)
[2023-02-16] MEDS: FERROUS SULFATE 325 MG TAB PO SCH (08:03)
[2023-02-16] MEDS: SIMETHICONE 80 MG CHEW PO SCH ×3 (08:03→20:32)
[2023-02-16] MEDS ORDERED: bisacodyL 5 MG TABEC PO SCH (20:00)
--- NOTE | 2023-02-17 04:21 | Obstetrical Progress Note ---
Date of Service <Greg Portillo DO - Last Filed: 02/17/23 06:09> February 17, 2023 Assessment & Plan <Greg Portillo DO - Last Filed: 02/17/23 06:09> (1) Status post delivery: (2) Status post tubal ligation at time of delivery, current hosp: Plan 23 year old female , POD#2 s/p c/s and bilateral tubal ligation: Eating well, voiding well, ambulating well Vitals reviewed, WNL Pain well controlled with Percocet and Motrin Routine post-op care - OOB, ambulation, diet progression as tolerated Will have 6 week follow up with Dr. Goldstein <Viola Rangel MD - Last Filed: 02/17/23 07:07> (1) Status post delivery: (2) Status post tubal ligation at time of delivery, current hosp: Subjective <Greg Portillo DO - Last Filed: 02/17/23 06:09> Ambulation: ambulating normally Voiding: no voiding problems Passing Gas:: Yes Diet Tolerance:: regular diet Lochia:: Moderate Feeding Type:: bottle feeding Pain well controlled with Percocet and Motrin Review of Systems -Denies fever or chills -Denies dyspnea, chest pain, or palpitations -Denies dysuria -Denies headache or changes in vision Physical Exam <Greg Portillo DO - Last Filed: 02/17/23 06:09> General: Alert and oriented. No acute distress Cardiac: Regular rate and rhythm, no murmurs appreciated Respiratory: Lungs clear to auscultation bilaterally, No increased work of breathing Abdominal: Soft, non-tender, non-distended. Bowel sounds present. Uterus: Uterine fundus firm, palpable below umbilicus Skin: Incision site clean, dry, and intact Extremities: No lower extremity edema, calves non-tender bilaterally Results & Data <Greg Portillo - Last Filed: 02/17/23 06:09> Vital Signs (Past 12 Hours) Vital Signs Temp Pulse Resp BP Pulse Ox O2 Del Method 02/16/23 23:00 36.8 C 79 18 117/74 99 Room Air 02/16/23 19:28 36.6 C 78 16 112/71 98 Room Air Supervising Physician <Viola Rangel MD - Last Filed: 02/17/23 07:07> Co-Signing Physician Notes I was present with Dr. Portillo during the history and exam. I discussed the case with the resident and agree with the findings and plan as documented in the note. Any exceptions or clarifications are listed here: [None] Resident Activity Tracking <Greg Portillo DO - Last Filed: 02/17/23 06:09> Resident Involvement: Resident Care Provided Care Provided: OB Delivery
[2023-02-17] MEDS: IBUPROFEN 600 MG TAB PO PRN ×2 (06:11→10:36)
[2023-02-17] MEDS: oxyCODONE/ACETAMINOPHEN 5mg/325mg TAB PO PRN ×2 (06:12→10:35)
[2023-02-17 07:51] LABS: Hematocrit (blood only) 28.5 % (37.0-47.0); Hemoglobin 8.9 g/dl (12.0-16.0)
[2023-02-17] MEDS: DOCUSATE SODIUM 100 MG CAP PO SCH (07:53)
[2023-02-17] MEDS: FERROUS SULFATE 325 MG TAB PO SCH (07:53)
[2023-02-17] MEDS: SIMETHICONE 80 MG CHEW PO SCH ×2 (07:53)
[2023-02-17] MEDS: PRENATAL VITAMIN 1 TAB PO SCH (07:53)
[2023-02-17] MEDS ORDERED: bisacodyL 10 MG SUPP PR PRN (08:28)
--- NOTE | 2023-02-21 07:50 | Discharge Summary ---
Date of Service February 21, 2023 Admission HPI Per Admitting Provider GALE Calculator Estimated Delivery Date Method Current WG Current Estimate 02/17/23 Ultrasound #1 39w 4d Other Estimates 02/06/23 LMP (Certain) 41w 1d LMP: 05/02/22 : 3 Full term: 1 Premature: 0 Total Number of Induced Abortions: 0 Total Number of Spontaneous Abortions: 1 Ectopics: 0 Multiple births: 0 Number of Living Children: 1 and Delivery Plans Previous c section - LTCS on Op report - Plan for 39 week repeat C/S WITH TUBAL SCHEDULED FOR 02/15/[address] PRITCHETT MA-31 FORM SIGNED 11/27/2022 Obesity (BMI between 35-39 @ beginning of ) *Growth US @ 32 wks *Weekly NSTs @ 36wks Admission Exam (Per Admitting) Constitutional WD/WN, vitals as above well developed and well nourished Respiratory normal respiratory effort, lungs clear to auscultation normal respiratory effort Cardiovascular RRR, no murmur, no edema Gastrointestinal (Abdomen) normal bowel sounds, soft, nontender, no hepatosplenomegaly Discharge Data Consultations 02/15/23 05:27 Consult Anesthesiology Stat Procedures Performed Operation Date: 02/15/23 07:30 Actual Procedures p Section with the of a live female child at 0754. - Geeta Pritchett MD, FACOG s with Bilateral Tubal Ligation - Geeta Pritchett MD, FACOG Hospital Course (1) Status post delivery: (2) Status post tubal ligation at time of delivery, current hosp: Plan 23 year old female , POD#2 s/p c/s and bilateral tubal ligation: Eating well, voiding well, ambulating well Vitals reviewed, WNL Pain well controlled with Percocet and Motrin Routine post-op care - OOB, ambulation, diet progression as tolerated Will have 6 week follow up with Dr. Pritchett Supervising Physician Co-Signing Physician Notes I was present with Dr. Portillo during the history and exam. I discussed the case with the resident and agree with the findings and plan as documented in the note. Any exceptions or clarifications are listed here: [None] Coding Level of Care Code None Diagnoses Status post delivery Z98.891 Status post tubal ligation at time of delivery, current hosp O80; Z30.2
== END 2023-02-17 10:55 | disposition home or self-care (01) | DRG 785 ==
LOC: 4S1 05:27 → EDSTATUS 07:30 → 4E2 11:30
PROC: M.PPTLD (2023-02-15 07:30)